=== PATIENT | female | born 1965 | race Caucasian/White ===

== ENCOUNTER 2016-11-04 07:57 | Outpatient (CLI) | payer OTHER ==
--- NOTE | 2016-11-04 11:40 | CT ---
CT ABDOMEN AND PELVIS WITH CONTRAST: Date: 11-04-[address] of the abdomen and pelvis was performed for evaluation of low abdominal pain for several d ays. Axial slices were acquired and then coronal and sagittal reconstructions were done. Oral contra st was also used. Comparison: 12-06-15 FINDINGS: The lung bases are clear. The liver and spleen are normal in size. There is a 3.6 x 2.7 cm periphera lly enhancing mass in the right posterior lobe of the liver consistent with a hemangioma. This was p resent on the prior scan and has not changed in size. Its peripheral enhancement is fairly classic f or such. There is also a bilobed cyst in the liver near the junction of the left and right lobes. Th e larger portion measures about 2 cm in size. The pancreas and adrenal glands appear normal. A few s mall cysts are seen in the left kidney, the largest of which measures about 1.1 cm in size. No solid mass or hydronephrosis was seen in either kidney. The bowel is nondistended. There is no sign of obstruction or bowel wall thickening. I would wonder about slight thickening of the second part of the duodenum, but it is collapsed and the symptoms are low in the high, so this is probably of no actual meaning. There is no free air or free fluid. CT of the pelvis again shows a left adnexal cyst that measures about 2.4 cm in size. This was presen t previously and was about the same size. No pelvic masses, fluid collections, or inflammatory wick es were seen. There were no findings in the pelvis to explain low abdominal pain. IMPRESSION: 1. No acute abdominal or pelvic findings to explain the patient's symptoms. 2. Findings consistent with a hemangioma of the right lobe of the liver measuring about 3.6 cm in di ameter. It is very similar in appearance to the prior scan. 2. Renal cysts. 3. 2.4 cm left adnexal cyst. POS: HOME
== END 2016-11-04 07:58 | disposition home or self-care (01) ==
LOC: BURCT 07:57
PROVIDERS: ATTEND Family Medicine
DX: R10.30 Lower abdominal pain, unspecified (principal); N28.1 Cyst of kidney, acquired; N83.8 Other noninflammatory disorders of ovary, fallopian tube and broad ligament
CPT/HCPCS: 74177

== ENCOUNTER 2017-05-23 15:13 | Emergency (ER) | payer BC, SELFPAY ==
[2017-05-23 15:34] LABS: Bilirubin Negative (Negative); Blood, Urine Negative (Negative); Clarity Cloudy (Clear); Glucose, Urine (Dipstick) Negative (Negative); Leukocyte Negative (Negative); Nitrite Negative (Negative); Protein, Urine (Dipstick) Negative (Neg-Trace); pH, Urine 7.5 (5.0-9.0)
[2017-05-23] MEDS ORDERED: Ketorolac Tromethamine 30 MG/ML VIAL ONE (15:48)
[2017-05-23 15:59] LABS: #Basophils 0.1 thou/uL (0.0-0.2); #Eosinphils 0.2 thou/uL (0.0-0.7); #Lymphocytes 2.1 thou/uL (1.20-3.40); #Monocytes 0.7 thou/uL (0.11-0.59); #Neutrophils 5.5 thou/uL (1.40-6.50); %Basophils 1.3 % (0.0-1.0); %Eosinophils 2.2 % (0.0-10.0); %Lymphocytes 24.7 % (21.0-51.0); %Monocytes 7.6 % (0.0-10.0); %Neutrophils 64.2 % (42.0-75.0); Hemoglobin 14.1 g/dL (12.0-16.0); Mean Corpuscular HGB CONC 36.1 g/dL (32.0-36.0); Mean Corpuscular Hemoglobin 31.4 pg (27.0-31.0); Mean Platelet Volume 8.5 fL (7.4-10.4); Platelet Count 362 thou/uL (130-400); RBC Distribution Width 11.8 % (11.5-14.5); Red Blood Cell (RBC) Count 4.51 mill/uL (4.20-5.40); White Blood Cell (WBC) Count 8.5 thou/uL (4.8-10.8)
[2017-05-23 16:16] LABS: ALT (SGPT) 22 U/L (8-55); AST (SGOT) 18 U/L (5-34); Albumin 4.4 g/dL (3.5-5.0); Alkaline Phosphatase 62 U/L (40-150); Anion Gap 15 mmol/L (10-20); BUN (Urea Nitrogen) 14 mg/dL (7.0-18.7); Bilirubin, Total 0.7 mg/dL (0.2-1.2); Calc. Creatinine Clearance 0 mL/min (70-130); Calcium 9.8 mg/dL (7.8-10.44); Carbon Dioxide 24 mmol/L (22-29); Chloride 107 mmol/L (98-107); Estimated GFR-MDRD 72; Globulin 2.8 g/dL (2.4-3.5); Glucose 104 mg/dL (70-105); Lipase 28 U/L (8-78); Potassium 3.8 mmol/L (3.5-5.1); Protein, Total 7.2 g/dL (6.0-8.3); Sodium 142 mmol/L (136-145)
[2017-05-23] MEDS ORDERED: Sulfameth/Trimethoprim DS 800-160mg TAB ONE (16:44)
[2017-05-23] MEDS ORDERED: metroNIDAZOLE 250 MG TAB ONE (16:44)
[2017-05-23] MEDS ORDERED: HYDROcodone/Acetaminophen 10/325 mg Tablet ONE (16:44)
--- NOTE | 2017-05-23 19:12 | CT ---
CT ABDOMEN AND PELVIS WITH CONTRAST: 05/23/17 Comparison is made with the 11/04/16 study. Axial slices were acquired after giving IV contrast, then coronal reconstructions were done. The lung bases are clear. The liver contains a few cysts near the junction of the right and left lobe , the largest measuring about 2.3 cm, which is comparable to before. There is also again seen a vague peripherally enhancing mass in the posterior right lobe most consistent with hemangioma. It measures 3.8 cm in width which is the same as before. The spleen, pancreas, adrenal glands, and aorta were un remarkable. A few cysts are seen in the left kidney, the largest being about 1.4 cm in size. No tayla d mass or hydronephrosis was seen. The bowel shows no distention to suggest obstruction. Diverticula are present, particularly in the le ft colon, but there were no convincing findings of diverticulitis. No free air or free fluid was seen . CT of the pelvis shows a 2.2 cm cyst in the left adnexa, a finding that was seen before, there are no new findings of concern. No inflammatory changes or free fluid was present. IMPRESSION: 1. No acute findings to explain abdominal pain. 2. Hepatic cysts and presumed hemangioma, unchanged. 3. Left renal cyst, unchanged. 4. Diverticulosis without findings of diverticulitis. POS: HOME
== END 2017-05-23 16:58 | disposition home or self-care (01) ==
LOC: BURERS 15:13
DX: K57.32 Diverticulitis of large intestine without perforation or abscess without bleeding (principal); E78.5 Hyperlipidemia, unspecified; I10 Essential (primary) hypertension; F32.9 Major depressive disorder, single episode, unspecified
CPT/HCPCS: 74177; 80053; 81003; 83690; 85025; 87086; 96374; J1885

== ENCOUNTER 2017-05-30 15:21 | Emergency (ER) | payer SELFPAY | END 2017-05-30 15:46 | disposition left against medical advice (07) | LOC: BURERS 15:21 | DX: L27.1 Localized skin eruption due to drugs and medicaments taken internally (principal); T50.905A Adverse effect of unspecified drugs, medicaments and biological substances, initial encounter; E78.5 Hyperlipidemia, unspecified; I10 Essential (primary) hypertension; F32.9 Major depressive disorder, single episode, unspecified; Z79.899 Other long term (current) drug therapy | CPT/HCPCS: 99282 ==

== ENCOUNTER 2020-03-26 07:24 | Outpatient (CLI) | payer OTHER ==
[2020-03-26 08:35] LABS: #Basophils 0.1 thou/uL (0.0-0.2); #Eosinphils 0.2 thou/uL (0.0-0.7); #Lymphocytes 3.2 thou/uL (1.20-3.40); #Monocytes 0.6 thou/uL (0.11-0.59); #Neutrophils 3.6 thou/uL (1.40-6.50); %Basophils 1.5 % (0.0-1.0); %Eosinophils 3.2 % (0.0-10.0); %Lymphocytes 40.9 % (21.0-51.0); %Neutrophils 46.6 % (42.0-75.0); Hemoglobin 15.8 g/dL (12.0-16.0); Mean Corpuscular HGB CONC 32.7 g/dL (32.0-36.0); Mean Corpuscular Hemoglobin 29.9 pg (27.0-31.0); Mean Corpuscular Volume 91.5 fL (78.0-98.0); Mean Platelet Volume 9.3 fL (7.4-10.4); Platelet Count 341 thou/uL (130-400); RBC Distribution Width 11.6 % (11.5-14.5); Red Blood Cell (RBC) Count 5.28 mill/uL (4.20-5.40); White Blood Cell (WBC) Count 7.7 thou/uL (4.8-10.8)
[2020-03-26 08:49] LABS: ALT (SGPT) 24 U/L (8-55); AST (SGOT) 19 U/L (5-34); Albumin 4.8 g/dL (3.5-5.0); Alkaline Phosphatase 61 U/L (40-110); Anion Gap 19 mmol/L (10-20); BUN (Urea Nitrogen) 18 mg/dL (9.8-20.1); Bilirubin, Total 1.1 mg/dL (0.2-1.2); Calc. Creatinine Clearance 0 mL/min (70-130); Calcium 9.7 mg/dL (7.8-10.44); Carbon Dioxide 25 mmol/L (22-29); Cardiac Risk 4.1 (Less than 4.5); Chloride 102 mmol/L (98-107); Cholesterol 234 mg/dl (< 200 Desired); Globulin 2.7 g/dL (2.4-3.5); Glucose 95 mg/dL (70-105); HDL Cholesterol 57 mg/dL (>60 Neg Risk); LDL Cholesterol, Calculated 147 mg/dL; Potassium 3.7 mmol/L (3.5-5.1); Protein, Total 7.5 g/dL (6.0-8.3); Sodium 142 mmol/L (136-145); Triglycerides 148 mg/dL (Less than 150)
== END 2020-03-26 07:25 | disposition home or self-care (01) ==
LOC: BURLAB 07:24
PROVIDERS: ATTEND Family Medicine
DX: Z13.6 Encounter for screening for cardiovascular disorders (principal); I10 Essential (primary) hypertension
CPT/HCPCS: 36415; 80053; 80061; 84443; 85025

== ENCOUNTER 2021-12-22 13:22 | Emergency (ER) | payer OTHER, SELFPAY ==
[2021-12-22] MEDS ORDERED: Fleet Enema 133 ML BOT ONE ×2 (13:49→14:00)
[2021-12-22] MEDS ORDERED: Ondansetron ODT 4 MG TAB ONE (15:23)
[2021-12-22] MEDS ORDERED: Lidocaine Viscous Sol 2% 15 ml UD Cup ONE (15:23)
[2021-12-22] MEDS ORDERED: Dicyclomine 20 MG TAB ONE (15:49)
== END 2021-12-22 15:58 | disposition home or self-care (01) ==
LOC: BURERS 13:22
DX: K59.00 Constipation, unspecified (principal); R11.0 Nausea; E78.00 Pure hypercholesterolemia, unspecified; I10 Essential (primary) hypertension; Z79.899 Other long term (current) drug therapy
CPT/HCPCS: 99283; Q0162